=== PATIENT | female | born 2000 | race Caucasian/White ===

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

== ENCOUNTER → 2020-09-02 | Outpatient (CLI) | payer BC ==
[~2020-09-02] MED LIST changes: +ACE65ERTAB PO; +ACET500P3 PO; +ANBE20GE TOP; +OMEP10CASR PO; +ONDA8TAB8 PO; +PRENTAB53 PO; +TUMS750C5 PO
[2020-09-02 17:37] LABS: HEMATOCRIT 41.9 % (36.0-47.0); HEMOGLOBIN 13.9 g/dl (12.0-15.5); MEAN CORPUSCULAR HEMOGLOBIN 31.8 pg (27.0-33.0); MEAN CORPUSCULAR HGB CONC 33.2 g/dl (32.0-36.5); MEAN CORPUSCULAR VOLUME 95.9 fl (80.0-96.0); PLATELET COUNT, AUTOMATED 297 10^3/uL (150-450); RED BLOOD COUNT 4.37 10^6/uL (4.00-5.40); WHITE BLOOD COUNT 10.7 10^3/uL (4.0-10.0)
[2020-09-02 18:26] LABS: HIV 1&2 SCREEN CENTAUR NEGATIVE (NEGATIVE)
[2020-09-02 18:43] LABS: GC DNA AMPLIFICATION NEGATIVE (NEGATIVE)
== END ==
LOC: M PLALAB 16:04
PROVIDERS: ATTEND Advanced Practice Midwife
DX: Z36.89 Encounter for other specified antenatal screening (principal)

== ENCOUNTER → 2020-10-07 | Outpatient (REF) | payer BC ==
[~2020-10-07] MED LIST changes: -ACE65ERTAB PO; -ACET500P3 PO; -ANBE20GE TOP; -OMEP10CASR PO; -ONDA8TAB8 PO; -PRENTAB53 PO; -TUMS750C5 PO
== END ==
LOC: M SFHCWAGY 10:14
PROVIDERS: ATTEND Obstetrics & Gynecology
DX: Z36.89 Encounter for other specified antenatal screening (principal); Z3A.15 15 weeks gestation of pregnancy

== ENCOUNTER → 2020-10-07 | Outpatient (CLI) | payer BC | LOC: M WHC 14:30 | PROVIDERS: ATTEND Obstetrics & Gynecology | DX: Z53.9 Procedure and treatment not carried out, unspecified reason (principal) ==

== ENCOUNTER → 2020-11-08 | Outpatient (CLI) | payer BC ==
--- NOTE | 2020-11-09 08:10 | REP ---
INDICATION: ANATOMY COMPARISON: None. TECHNIQUE: Transabdominal obstetrical ultrasound with color Doppler evaluation. FINDINGS: Examination demonstrates a single live intrauterine in variable presentation. motion is identified by technologist. Placenta is noted posterior and grade 0 without evidence for placenta previa or abruption. Amniotic fluid volume is normal. Cervix measures 4.0 cm in length and appears closed.. Selected gestational age: 19 weeks 4 days with [place] 03/31/2021. Gestational age by current measurements 19 weeks 1 day with [place] 04/03/2021. FHR equals 153 beats per minute. BPD: 4.2 cm at 18 weeks 6 days HC: 15.9 cm at 18 weeks 5 days AC: 14.5 cm at 19 weeks 6 days FL: 2.7 cm at 18 weeks 2 days HL: 3.0 cm at 19 weeks 5 days HC/AC: 1.10 Estimated weight 273 grams (21stpercentile). Anatomical assessment demonstrates normal structures including cranium, choroid plexus, cavum, cerebellum/posterior fossa, facial features, lungs, four-chamber, diaphragm, stomach, cord insertion/three-vessel cord, kidneys/bladder, spine, and extremities. IMPRESSION: Single live intrauterine in variable presentation demonstrating appropriate interval growth. Limited evaluation of the heart/cardiac ventricular outflow tracts. Remainder of the anatomical assessment is complete and normal. <Electronically signed by Pablo Leroy > 11/09/20 [id number]
== END ==
LOC: M WHC 14:01
PROVIDERS: ATTEND Obstetrics & Gynecology
DX: Z36.89 Encounter for other specified antenatal screening (principal); Z3A.15 15 weeks gestation of pregnancy

== ENCOUNTER 2020-11-24 10:11 | Emergency (ER) | payer BC ==
[~2020-11-24] VITALS: Ht 157.5 cm; Wt 65.4 kg
[2020-11-24] MEDS ORDERED: PRENTAB53 PO (10:17)
[2020-11-24] MEDS ORDERED: ACE65ERTAB PO (10:18)
[2020-11-24 13:12] LABS: RSV AMPLIFICATION NEGATIVE (NEGATIVE)
[2020-11-24 17:29] VITALS: BP 112/74
== END 2020-11-24 17:33 | disposition home or self-care (01) ==
LOC: M ED 10:11
DX: O98.512 Other viral diseases complicating pregnancy, second trimester (principal); R52 Pain, unspecified; U07.1 COVID-19; Z3A.22 22 weeks gestation of pregnancy; Z88.5 Allergy status to narcotic agent

== ENCOUNTER 2020-11-25 10:52 | Outpatient (CLI) | payer BC ==
--- NOTE | 2020-11-24 17:12 | CR.PDOC ---
General Date of Consultation: Nov 24, 2020 Referring Provider: BETO HINES PA-C. Attending Physician: SARAH DE JESUS MD Consultation REASON FOR CONSULTATION/CHIEF COMPLAINT: COUGH, MYALGIAS w/ covid-19 infection, unvaccinated, at 22weeks gestation for MABs HISTORY OF PRESENT ILLNESS: 20 yo W with at 22w gestation who had a covid-19 exposure a few days ago, unvaccinated against covid-19, then developed myalgias, cough, and weakness 2 days prior to presentation who presented to the ED today and was found to be co vid-19 positive. She is otherwise breathing comfortably on room air, without hypoxemia but has some mild nausea, emesis, no abdominal pain, vaginal bleeding, diarrhea, chest pain or palpitations. Internal medicine is now consulted for observation and MAB infusion. ALLERGIES: Please see below. HOME MEDICATIONS: Please see below. PAST MEDICAL HISTORY: Healthy, no significant past medical history PAST SURGICAL HISTORY: None FAMILY HISTORY: Reviewed, not pertinent to presentation SOCIAL HISTORY: Non-smoker No significant or recent alcohol No illicit drugs REVIEW OF SYSTEMS: Completed 10 point ROS and all pertinent positives were noted in HPI, with the rest otherwise negative. PHYSICAL EXAMINATION: VITAL SIGNS: Please see below. GENERAL APPEARANCE: NAD HEENT: NCAT, EOMI, MMM RESPIRATORY: CTAB, no wheezing or crackles CARDIOVASCULAR: RRR, no m/r/g ABDOMEN: Gravid uterus, nontender EXTREMITIES: WWP, no LE edema NEUROLOGICAL: CN3-12 intact, moving all extremities, nonfocal examination PSYCHIATRIC: AOx3 LABORATORY DATA: Please see below. ASSESSMENT/PLAN: 20 yo W with at 22w gestation who had a covid-19 exposure a few days ago, unvaccinated against covid-19, then developed myalgias, cough, and weakness 2 days ago who presented to the ED today and was found to be covid-19 positive now being admitted for observation and MAB infusion. Covid-19 infection: -ED provider discussed MABs with OB that recommended infusion given high risk for progression to severe illness while especially given unvaccinated status -patient signed consent to receive treatment -Casarivimab/imdevimab are ordered -Infusion reaction meds ordered per protocol 22w gestation: -f/u with Ob per outpatient plan To discharge home after infusion is complete. Allergies Coded Allergies: hydrocodone (Verified Allergy, Unknown, 11/24/20) Home Medications Scheduled Vit,Calc76/Iron/Folic (Prenatabs Rx Tablet) 1 Each Tablet, 1 TAB PO DAILY for 30 Days, #30 (Reported) Scheduled PRN Acetaminophen (Acetaminophen ER) 650 Mg Tablet.er, 1 TAB PO TID PRN for PAIN LEVEL 1-4 for 21 Days, #63 (Reported) SARAH DE JESUS MD Nov 24, 2020 15:45
[~2020-11-25] VITALS: Ht 157.5 cm; Wt 65.9 kg
[~2020-11-25 10:52] MED LIST changes: +ACE65ERTAB PO; +ACETAMINOPHEN TAB 650MG DOSE (2X325MG) PO PRN; +ALBUTEROL 90 MCG/ACT 8GM HFA INHALER INH PRN; +ALBUTEROL SULFATE 2.5 MG/0.5 ML INH NEB SOLN INH PRN; +CASIRIVIMAB/IMDEVIMAB 1,200 MG in NS 250 ML IV ONE; +EPINEPHrine INJ 1 MG/ML 1ML AMP IM PRN; +NS 1,000 ML IV SCH; +PRENTAB53 PO; +diphenhydrAMINE 50MG/ML VIAL (J1200) IV PRN; +methylPREDNISolone 125MG 2ML VIAL IV PRN
[2020-11-25 11:30] VITALS: BP 107/67
[2020-11-25 12:00] VITALS: BP 116/63
[2020-11-25 12:30] VITALS: BP 108/64
[2020-11-25 13:05] VITALS: BP 108/65
== END 2020-11-25 14:10 | disposition home or self-care (01) ==
LOC: M OPCLI4 10:52 → M 4MAIN 10:59 → M OPCLI4 14:10
PROVIDERS: ATTEND Physician Assistant Medical
DX: U07.1 COVID-19 (principal); Z88.6 Allergy status to analgesic agent

== ENCOUNTER → 2021-01-04 | Outpatient (CLI) | payer BC ==
[~2021-01-04] MED LIST changes: -ACETAMINOPHEN TAB 650MG DOSE (2X325MG) PO PRN; -ALBUTEROL 90 MCG/ACT 8GM HFA INHALER INH PRN; -ALBUTEROL SULFATE 2.5 MG/0.5 ML INH NEB SOLN INH PRN; -CASIRIVIMAB/IMDEVIMAB 1,200 MG in NS 250 ML IV ONE; -EPINEPHrine INJ 1 MG/ML 1ML AMP IM PRN; -NS 1,000 ML IV SCH; -diphenhydrAMINE 50MG/ML VIAL (J1200) IV PRN; -methylPREDNISolone 125MG 2ML VIAL IV PRN
--- NOTE | 2021-01-04 19:34 | REP ---
INDICATION: F/U ANATOMY. COMPARISON: 11/08/2020 TECHNIQUE: Real-time and Doppler imaging utilizing external transducer. FINDINGS: The four-chamber heart and both ventricular outflow tracts which were not well seen on the prior study now appear normal. The current gestational age is 27 weeks 6 days with an estimated dated delivery of 03/30/2021. Estimated weight is 1098+/-161 g. LMP percentile is 33%. An TREY of 12.87 cm is normal. Cervical length is 3.61 cm and closed. IMPRESSION: The ventricular outflow tracks appear normal. 2. Single living intrauterine gestation of approximately 27 weeks 6 days with an estimated dated delivery of 03/30/2021. <Electronically signed by Abran Florence > 01/04/211929
== END ==
LOC: M WHC 12:17
PROVIDERS: ATTEND Obstetrics & Gynecology
DX: Z36.2 Encounter for other antenatal screening follow-up (principal); Z3A.27 27 weeks gestation of pregnancy

== ENCOUNTER → 2021-02-03 | Outpatient (CLI) | payer BC ==
[2021-02-03 13:22] LABS: HEMATOCRIT 39.7 % (36.0-47.0); MEAN CORPUSCULAR HEMOGLOBIN 32.3 pg (27.0-33.0); MEAN CORPUSCULAR HGB CONC 32.7 g/dl (32.0-36.5); MEAN CORPUSCULAR VOLUME 98.8 fl (80.0-96.0); PLATELET COUNT, AUTOMATED 263 10^3/uL (150-450); RED BLOOD COUNT 4.02 10^6/uL (4.00-5.40); WHITE BLOOD COUNT 10.3 10^3/uL (4.0-10.0)
[2021-02-03 13:50] LABS: TOTAL PROTEIN,RANDOM URINE 47.4 MG/DL (0.0-12.0)
[2021-02-03 14:15] LABS: ALBUMIN 3.3 GM/DL (3.2-5.2); ALT/SGPT 12 U/L (12-78); BILIRUBIN,TOTAL 0.3 MG/DL (0.2-1.0); BLOOD UREA NITROGEN 5 MG/DL (7-18); CALCIUM LEVEL 8.8 MG/DL (8.5-10.1); CARBON DIOXIDE LEVEL 25 MEQ/L (21-32); CHLORIDE LEVEL 104 MEQ/L (98-107); CREATININE FOR GFR 0.53 MG/DL (0.55-1.30); GLOMERULAR FILTRATION RATE > 60.0 (>60); GLUCOSE CHALLENGE TEST 1 HOUR 116 MG/DL (LESS THAN 140); GLUCOSE, FASTING 116 MG/DL (70-100); POTASSIUM SERUM 3.8 MEQ/L (3.5-5.1); SODIUM LEVEL 138 MEQ/L (136-145); TOTAL PROTEIN 6.8 GM/DL (6.4-8.2)
[2021-02-03 15:37] LABS: GC DNA AMPLIFICATION NEGATIVE (NEGATIVE)
== END ==
LOC: M PLALAB 08:26
PROVIDERS: ATTEND Obstetrics & Gynecology
DX: Z36.9 Encounter for antenatal screening, unspecified (principal); Z3A.00 Weeks of gestation of pregnancy not specified

== ENCOUNTER 2021-02-25 17:09 | Emergency (ER) | payer BC ==
[~2021-02-25] VITALS: Ht 157.5 cm; Wt 77.9 kg
[2021-02-25] MEDS ORDERED: BENZOCAINE 20% GEL 9GM TUBE (ANBESOL MAX STRENGTH) TOP ONE (19:45)
[2021-02-25] MEDS ORDERED: ANBE20GE TOP (20:23)
[2021-02-25 20:47] VITALS: BP 132/70
== END 2021-02-25 20:56 | disposition home or self-care (01) ==
LOC: M ED 17:09
DX: K08.89 Other specified disorders of teeth and supporting structures (principal); Z3A.35 35 weeks gestation of pregnancy; Z88.5 Allergy status to narcotic agent

== ENCOUNTER → 2021-03-04 | Outpatient (REF) | payer BC ==
[~2021-03-04] MED LIST changes: +ANBE20GE TOP
== END ==
LOC: M SFHCWAGY 16:52
PROVIDERS: ATTEND Specialist
DX: Z36.85 Encounter for antenatal screening for Streptococcus B (principal); Z3A.00 Weeks of gestation of pregnancy not specified

== ENCOUNTER 2021-04-05 07:40 | Inpatient (IN) | payer BC ==
[~2021-04-05] VITALS: Ht 157.5 cm; Wt 78.6 kg
[2021-04-05] VITALS (16 sets, daily range): BP systolic 101–139; BP diastolic 53–87
[~2021-04-05 07:40] MED LIST changes: +TUMS750C5 PO
[2021-04-05] MEDS ORDERED: LACTATED RINGER'S 1000 ML IV STA (07:58)
[2021-04-05] MEDS ORDERED: LIDOCAINE 1% MDV 20ML VIAL INFIL PRN (08:00)
[2021-04-05] MEDS ORDERED: OXYTOCIN DRIP 30 UNITS in IV 1 EA IV PRN (08:00)
[2021-04-05] MEDS ORDERED: CARBOPROST TROMETHAMINE 250 MCG/ML AMP IM PRN (08:00)
[2021-04-05] MEDS ORDERED: TRANEXAMIC ACID INJection 1,000 MG in NS 100 ML IV PRN (08:00)
[2021-04-05] MEDS ORDERED: METHYLERGONOVINE MALEATE 0.2 MG/ML VIAL (J2210) IM PRN (08:00)
[2021-04-05] MEDS ORDERED: ONDA8TAB8 PO (08:09)
[2021-04-05] MEDS ORDERED: OMEP10CASR PO (08:09)
[2021-04-05] MEDS ORDERED: ACET500P3 PO (08:09)
[2021-04-05] MEDS ORDERED: HOME MED LIST COMPLETE! XX SCH (08:10)
[2021-04-05 09:04] LABS: HEMATOCRIT 39.9 % (36.0-47.0); HEMOGLOBIN 13.7 g/dl (12.0-15.5); MEAN CORPUSCULAR HEMOGLOBIN 31.6 pg (27.0-33.0); MEAN CORPUSCULAR HGB CONC 34.3 g/dl (32.0-36.5); MEAN CORPUSCULAR VOLUME 92.1 fl (80.0-96.0); PLATELET COUNT, AUTOMATED 232 10^3/uL (150-450); RED BLOOD COUNT 4.33 10^6/uL (4.00-5.40); WHITE BLOOD COUNT 10.3 10^3/uL (4.0-10.0)
[2021-04-05 09:05] LABS: APPEARANCE, URINE CLEAR (CLEAR); BACTERIA, URINE AUTO NEGATIVE (NEGATIVE); BILIRUBIN, URINE AUTO NEGATIVE (NEGATIVE); BLOOD, URINE BLOOD NEGATIVE (NEGATIVE); COLOR, URINE COLORLESS (YELLOW); GLUCOSE, URINE (UA) AUTO NEGATIVE (NEGATIVE); KETONE, URINE AUTO TRACE mg/dL (NEGATIVE); LEUKOCYTE ESTERASE, URINE AUTO NEGATIVE (NEGATIVE); MUCUS, URINE SMALL (NEGATIVE); NITRITE, URINE AUTO NEGATIVE (NEGATIVE); PROTEIN, URINE AUTO NEGATIVE (NEGATIVE); RBC, URINE AUTO 0 /HPF (0-3); SPECIFIC GRAVITY URINE AUTO 1.001 (1.002-1.035); SQUAMOUS EPITHELIAL CELL UR AU 0 /HPF (0-6); UROBILINOGEN, URINE AUTO 0.2 mg/dL (0.0-2.0); WBC, URINE AUTO 0 /HPF (0-3)
[2021-04-05] MEDS ORDERED: miSOPROStol 50MCG 1/2 TABLET PO ONE ×2 (10:15→14:30)
[2021-04-05] MEDS: ONDANSETRON 4MG/2ML VIAL IV PRN ×2 (11:23→18:40)
[2021-04-05] MEDS: ACETAMINOPHEN 500 MG TAB PO PRN ×2 (11:23→17:59)
[2021-04-05] MEDS ORDERED: miSOPROStol 50MCG 1/2 TABLET PV SCH (13:00)
[2021-04-05] MEDS ORDERED: PENICILLIN G POTASSIUM IV 5 MU in D5W MINI-BAG PLUS 100 ML IV STA (13:08)
[2021-04-05] MEDS: LR 1,000 ML IV SCH ×2 (14:40→23:11)
[2021-04-05] MEDS: PENICILLIN G POTASSIUM IV 2.5 MU in IV 1 EA IV SCH ×2 (18:50→23:08)
[2021-04-05] MEDS: miSOPROStol 50MCG 1/2 TABLET PO SCH ×2 (19:27→23:29)
[2021-04-06] VITALS (37 sets, daily range): BP systolic 95–156; BP diastolic 53–83
[2021-04-06] MEDS ORDERED: FENTANYL 2MCG/ML ROPIVACAINE 0.2% IN 0.9% NACL 100ML IVBAG As Ordered ONE (01:15)
[2021-04-06] MEDS: LR 1,000 ML IV SCH (01:44)
[2021-04-06] MEDS ORDERED: LR 1,000 ML IV SCH (01:55)
[2021-04-06] MEDS ORDERED: OXYTOCIN DRIP 30 UNITS in IV 1 EA IV SCH ×2 (01:55→07:50)
[2021-04-06] MEDS: ePHEDrine SULFATE 25 MG/5 ML(5MG/ML) SYRINGE IV PRN ×3 (03:35→03:47)
[2021-04-06] MEDS: PENICILLIN G POTASSIUM IV 2.5 MU in IV 1 EA IV SCH (03:47)
[2021-04-06] MEDS ORDERED: ePHEDrine SULFATE 25 MG/5 ML(5MG/ML) SYRINGE As Ordered ONE (04:00)
[2021-04-06] MEDS ORDERED: NALOXONE INJ 0.4MG/1ML VIAL (J2310 PER 1MG) IV PRN (04:25)
[2021-04-06] MEDS ORDERED: EPIDURAL COMMENT XX SCH (04:25)
[2021-04-06] MEDS ORDERED: diphenhydrAMINE 50MG/ML VIAL (J1200) IV PRN (04:25)
[2021-04-06] MEDS ORDERED: EPIDURAL/PCA KEYS XX PRN (04:25)
[2021-04-06] MEDS ORDERED: ONDANSETRON 4MG/2ML VIAL IV PRN (04:25)
[2021-04-06] MEDS ORDERED: FENTANYL/ROPIVACAINE/NACL BAG 100 ML EPIDURAL SCH (04:25)
[2021-04-06] MEDS ORDERED: REFRIGERATOR IV KEYS XX PRN (04:25)
[2021-04-06] MEDS ORDERED: LACTATED RINGER'S 1000 ML IV PRN (04:25)
[2021-04-06 07:34] LABS: CORD GAS ABE A -11.8; CORD GAS O2 SAT A 50.4 %; CORD GAS PCO2 A 64.4 mmHg; CORD GAS PH A 7.088 UNITS; CORD GAS PO2 A 28.1 mmHg; CORD GAS SBC A 14.5 MEQ/L
[2021-04-06 07:35] LABS: CORD GAS ABE V -9.1; CORD GAS HCO3 V 17.9 MEQ/L; CORD GAS O2 SAT V 65.3 %; CORD GAS PCO2 V 42.6 mmHg; CORD GAS PH V 7.241 UNITS; CORD GAS SBC V 16.6 MEQ/L; CORD GAS TCO2 V 19.2 MEQ/L
[2021-04-06] MEDS ORDERED: ACETAMINOPHEN TAB 650MG DOSE (2X325MG) PO PRN (07:50)
[2021-04-06] MEDS ORDERED: MEASLES,MUMPS,RUBELLA VACCINE INJ (MMR-II) (90707) SC SCH (07:50)
[2021-04-06] MEDS ORDERED: MOM 30ML SUSPENSION UDC PO PRN (07:50)
[2021-04-06] MEDS ORDERED: DIBUCAINE 1% OINTMENT 30GM TOP PRN (07:50)
[2021-04-06] MEDS ORDERED: METHYLERGONOVINE MALEATE 0.2 MG TAB PO PRN (07:50)
[2021-04-06] MEDS ORDERED: RHOGAM 300 MCG (1500 IU) INJ (J2790) IM SCH (07:50)
[2021-04-06] MEDS: PRENATAL VITAMINS CHEWABLE TABLET PO SCH (11:54)
[2021-04-06] MEDS: ACETAMINOPHEN 500 MG TAB PO PRN ×2 (12:01→18:14)
[2021-04-06] MEDS: IBUPROFEN 800 MG TAB PO PRN ×2 (13:32→22:26)
[2021-04-06] MEDS: DOCUSATE SODIUM 100MG CAPSULE PO PRN (22:26)
[2021-04-07 06:00] VITALS: BP 136/86
[2021-04-07] MEDS: ACETAMINOPHEN 500 MG TAB PO PRN ×2 (06:02→14:33)
[2021-04-07] MEDS: PRENATAL VITAMINS CHEWABLE TABLET PO SCH (08:00)
[2021-04-07] MEDS: IBUPROFEN 600MG TAB PO PRN ×2 (08:27→20:53)
[2021-04-07] MEDS ORDERED: INFLUENZA QUADRIVALENT PF VACCINE 0.5ML SYRINGE IM ONE (09:00)
[2021-04-07] MEDS: DOCUSATE SODIUM 100MG CAPSULE PO PRN (20:52)
[2021-04-07 21:00] VITALS: BP 122/76
[2021-04-08 05:59] VITALS: BP 132/84
[2021-04-08] MEDS: IBUPROFEN 800 MG TAB PO PRN (09:21)
[2021-04-08] MEDS: PRENATAL VITAMINS CHEWABLE TABLET PO SCH (09:21)
== END 2021-04-08 13:35 | disposition home or self-care (01) | DRG 560 ==
LOC: M LDO 07:40 → M LDI 10:20 → M OBS 04-06 11:30
PROVIDERS: ADMIT Obstetrics & Gynecology; ATTEND Obstetrics & Gynecology
PROC: 3E0P7GC Introduction of Other Therapeutic Substance into Female Reproductive, Via Natural or Artificial Opening (ICD-10-PCS; 2021-04-05)
PROC: 10E0XZZ Delivery of Products of Conception, External Approach (ICD-10-PCS; principal; 2021-04-06)
PROC: 0HQ9XZZ Repair Perineum Skin, External Approach (ICD-10-PCS; 2021-04-06)
DX: O98.52 Other viral diseases complicating childbirth (principal); U07.1 COVID-19; O99.824 Streptococcus B carrier state complicating childbirth; O48.0 Post-term pregnancy; O70.0 First degree perineal laceration during delivery; Z37.0 Single live birth; O69.81X0 Labor and delivery complicated by cord around neck, without compression, not applicable or unspecified; Z3A.40 40 weeks gestation of pregnancy